=== PATIENT | male | born 1995 | race African-American/Black ===

== ENCOUNTER 2020-04-02 19:11 | Emergency (ER) | payer MEDICAID ==
[~2020-04-02] VITALS: Ht 170.2 cm; Wt 69.0 kg
[2020-04-02] MEDS ORDERED: NALOXONE HCL 0.4 MG/ML 1ML VIAL IM ONE (21:15)
[2020-04-03 00:37] VITALS: BP 120/80
== END 2020-04-03 00:38 | disposition home or self-care (01) ==
LOC: ER 19:11
DX: T40.2X1A Poisoning by other opioids, accidental (unintentional), initial encounter (principal); G92 Toxic encephalopathy; Z98.890 Other specified postprocedural states; Z85.9 Personal history of malignant neoplasm, unspecified; Y92.018 Other place in single-family (private) house as the place of occurrence of the external cause
CPT/HCPCS: 93005; 99283